=== PATIENT | female | born 1990 | race Caucasian/White ===

== ENCOUNTER 2016-07-31 09:31 | Inpatient (IN) | payer MEDICAID, OTHER ==
[~2016-07-31] VITALS: Ht 147.3 cm; Wt 65.0 kg
[~2016-07-31 09:31] MED LIST: FERR27TA PO; PNV; PREN1TAB49 PO
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
--- NOTE | 2016-07-31 14:16 | RADRPT ---
PROCEDURE: XR Right Humerus. CLINICAL INDICATION: Right arm pain. TECHNIQUE: AP and lateral views of the right humerus were performed. COMPARISON: None. FINDINGS: There is an acute comminuted fracture of the distal shaft of the humerus with marked angulation apex anterior lateral. There are approximately 5 major fracture fragments. There is overlying soft tissue swelling. Articular surfaces are intact. There is no lytic or blastic lesion. There is no radiopaque foreign body. IMPRESSION: 1. Acute comminuted fracture of the distal shaft of the humerus. 2. Intact articular surfaces. 3. Otherwise unremarkable study. RPTAT: QQ .Trino Hernandez MD, MD Date Time Electronically viewed and signed by .Trino Hernandez MD, MD on 07/31/2016 14:16 .R/
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
[2016-07-31] MEDS ORDERED: SOD CHLORIDE 0.9% 1,000 ML IV STA (14:27)
[2016-07-31] MEDS ORDERED: morphine 4 MG/ML VIAL IV STA (14:34)
--- NOTE | 2016-07-31 14:56 | RADRPT ---
PROCEDURE: XR Chest. CLINICAL INDICATION: Preoperative. Abdominal pain. TECHNIQUE: Single frontal view. COMPARISON: None. FINDINGS: The lungs are clear. The heart size is normal. There is no pleural effusion. There is no pneumothorax. IMPRESSION: 1. Normal chest radiograph. RPTAT: QQ .Trino Hernandez MD, MD Date Time Electronically viewed and signed by .Trino Hernandez MD, on 07/31/2016 14:55 .R/
[2016-07-31] MEDS ORDERED: ONDANSETRON 4 MG INJ IV STA (14:57)
[2016-07-31 15:07] LABS: ADD SCAN DIFF NO
[2016-07-31 15:10] LABS: BASOPHILS % 0.1 % (0.0-2.0); HEMOGLOBIN 14.2 g/dl (12.0-16.0); LYMPHOCYTES # 1.1 10^3/ul (0.8-2.9); MEAN CORPUSCULAR HGB CONC 34.6 g/dl (32.0-37.0); MEAN CORPUSCULAR VOLUME 89.5 fl (82.0-101.0); MEAN PLATELET VOLUME 10.9 fl (7.4-10.4); MONOCYTE # 0.4 10^3/ul (0.3-0.9); MONOCYTES % 4.4 % (0.0-11.0); NEUTROPHIL # 8.1 10^3/ul (1.6-7.5); NEUTROPHILS % 84.3 % (39.0-77.0); PLATELET COUNT 298 10^3/UL (140-415); RED BLOOD COUNT 4.58 10^6/ul (4.20-5.40); RED CELL DISTRIBUTION WIDTH 12.4 % (11.5-14.5); WHITE BLOOD COUNT 9.6 10^3/ul (4.8-10.8)
[2016-07-31 15:18] LABS: CHLORIDE 104 mmol/L (97-110); INR 0.94; POTASSIUM 3.8 mmol/L (3.5-5.1); PROTIME 12.6 Sec (12.2-14.2); SODIUM 142 mmol/L (135-144)
[2016-07-31 15:19] LABS: PARTIAL THROMBOPLASTIN TIME 33.7 Sec (25.0-35.0)
[2016-07-31 15:21] LABS: CREATININE 0.62 mg/dl (0.44-1.00)
[2016-07-31 15:22] LABS: ANION GAP 16 (8-16); BLOOD UREA NITROGEN 10 mg/dl (7-20); CALCIUM 9.6 mg/dl (8.4-10.2); CARBON DIOXIDE 26 mmol/L (21-31); GLUCOSE 105 mg/dl (70-220)
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
--- NOTE | 2016-07-31 15:25 | RADRPT ---
PROCEDURE: Chest x-ray CLINICAL INDICATION: Preop TECHNIQUE: Chest single view COMPARISON: 07/31/2016 FINDINGS: The heart is normal in size. The pulmonary vessels are normal in caliber. The lungs are clear. Th e costophrenic angles are sharp. The visualized bony thorax is unremarkable. IMPRESSION: No acute cardiopulmonary disease. RPTAT: HH .Devante George MD, Date Time Electronically viewed and signed by .Devante George MD, on 07/31/2016 15:25 .W/
[2016-07-31] MEDS ORDERED: ACETAMINOPHEN 325 MG TAB PO PRN (15:30)
[2016-07-31] MEDS ORDERED: ONDANSETRON 4 MG INJ IV PRN ×2 (15:30→17:00)
[2016-07-31 15:40] LABS: TROPONIN-I < 0.012 ng/ml (0.00-0.12)
[2016-07-31 16:45] VITALS: BP 114/69; PULSE 78; RESP 18
[2016-07-31 16:56] VITALS: Ht 147.3 cm; Wt 65.0 kg
[2016-07-31] MEDS ORDERED: BISACODYL (EC) 5 MG TAB PO PRN (17:00)
[2016-07-31] MEDS ORDERED: MAGNESIUM HYDROXIDE 30ML CUP PO PRN (17:00)
[2016-07-31] MEDS ORDERED: NACL 0.9% 3 ML SYG IV SCH (17:00)
[2016-07-31] MEDS ORDERED: ZOLPIDEM 5 MG TAB PO PRN (17:00)
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
[2016-07-31] MEDS: SOD CHLORIDE 0.9% 1,000 ML IV SCH (17:37)
[2016-07-31 19:10] LABS: ADD UMIC NO; URINE BILIRUBIN (Dip) NEGATIVE (NEGATIVE); URINE BLOOD (Dip) NEGATIVE (NEGATIVE); URINE COLOR LT. YELLOW (YELLOW); URINE GLUCOSE (Dip) NEGATIVE (NEGATIVE); URINE KETONES (Dip) 3+ (NEGATIVE); URINE LEUKOCYTE ESTERASE (Dip) NEGATIVE (NEGATIVE); URINE NITRITE (Dip) NEGATIVE (NEGATIVE); URINE TOTAL PROTEIN (Dip) NEGATIVE (NEGATIVE); URINE UROBILINOGEN (Dip) 0.2 E.U./dL (0.1-1.0)
[2016-07-31 19:37] VITALS: BP 118/70; RESP 18
[2016-07-31 19:54] LABS: BARBITURATES Negative (NEGATIVE); BENZODIAZEPINES Negative (NEGATIVE); CANNABINOIDS Negative (NEGATIVE); COCAINE Negative (NEGATIVE)
[2016-07-31 19:55] LABS: OPIATES Positive (NEGATIVE)
[2016-07-31] MEDS: FAMOTIDINE 20 MG TAB PO SCH (20:13)
[2016-07-31] MEDS: HYDROCODONE/APAP (5/325) TAB PO PRN (23:49)
[2016-08-01] MEDS: HYDROCODONE/APAP (5/325) TAB PO PRN ×3 (04:56→21:39)
[2016-08-01 05:40] LABS: ADD SCAN DIFF NO
[2016-08-01 05:53] LABS: BASOPHILS % 0.2 % (0.0-2.0); EOSINOPHILS # 0.1 10^3/ul (0.0-0.5); EOSINOPHILS % 1.1 % (0.0-7.0); HEMATOCRIT 34.1 % (37.0-47.0); HEMOGLOBIN 11.5 g/dl (12.0-16.0); LYMPHOCYTES # 2.3 10^3/ul (0.8-2.9); LYMPHOCYTES % 37.1 % (15.0-51.0); MEAN CORPUSCULAR HEMOGLOBIN 30.4 pg (29.0-33.0); MEAN CORPUSCULAR HGB CONC 33.7 g/dl (32.0-37.0); MEAN CORPUSCULAR VOLUME 90.2 fl (82.0-101.0); MEAN PLATELET VOLUME 11.3 fl (7.4-10.4); MONOCYTE # 0.4 10^3/ul (0.3-0.9); MONOCYTES % 6.5 % (0.0-11.0); NEUTROPHIL # 3.4 10^3/ul (1.6-7.5); NEUTROPHILS % 54.8 % (39.0-77.0); PLATELET COUNT 246 10^3/UL (140-415); RED BLOOD COUNT 3.78 10^6/ul (4.20-5.40); RED CELL DISTRIBUTION WIDTH 12.6 % (11.5-14.5); WHITE BLOOD COUNT 6.3 10^3/ul (4.8-10.8)
[2016-08-01 05:55] LABS: INR 1.01; PROTIME 13.3 Sec (12.2-14.2)
[2016-08-01 05:57] LABS: PARTIAL THROMBOPLASTIN TIME 37.2 Sec (25.0-35.0)
[2016-08-01 06:06] LABS: PHOSPHORUS 3.7 mg/dl (2.5-4.9)
[2016-08-01 06:21] LABS: CREATININE 0.61 mg/dl (0.44-1.00)
[2016-08-01 06:30] LABS: THYROID STIMULATING HORMONE 1.65 MIU/L (0.465-4.680)
[2016-08-01 07:26] VITALS: BP 107/66; RESP 14
[2016-08-01] MEDS: FAMOTIDINE 20 MG TAB PO SCH ×2 (09:01→20:14)
[2016-08-01] MEDS: SOD CHLORIDE 0.9% 1,000 ML IV SCH (09:36)
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
[2016-08-01] MEDS: morphine 2 MG INJ IV PRN (19:39)
[2016-08-01 21:16] VITALS: BP 112/74; RESP 20
[2016-08-01 21:17] VITALS: BP_SYST 112; BP_SYST 115; BP_DIAS 73; BP_DIAS 74; RESP 20
[2016-08-02] VITALS (13 sets, daily range): BP systolic 115–154; BP diastolic 61–75; PULSE 72–117; RESP 12–18
[2016-08-02] MEDS: SOD CHLORIDE 0.9% 1,000 ML IV SCH ×2 (00:14→15:47)
[2016-08-02] MEDS: morphine 2 MG INJ IV PRN (04:22)
[2016-08-02 05:12] LABS: ADD SCAN DIFF NO
[2016-08-02 05:15] LABS: BASOPHILS % 0.3 % (0.0-2.0); EOSINOPHILS # 0.1 10^3/ul (0.0-0.5); EOSINOPHILS % 1.1 % (0.0-7.0); HEMOGLOBIN 11.5 g/dl (12.0-16.0); LYMPHOCYTES # 2.5 10^3/ul (0.8-2.9); MEAN CORPUSCULAR HEMOGLOBIN 30.7 pg (29.0-33.0); MEAN CORPUSCULAR HGB CONC 33.8 g/dl (32.0-37.0); MEAN CORPUSCULAR VOLUME 90.9 fl (82.0-101.0); MEAN PLATELET VOLUME 11.4 fl (7.4-10.4); MONOCYTE # 0.6 10^3/ul (0.3-0.9); MONOCYTES % 8.1 % (0.0-11.0); NEUTROPHILS % 55.4 % (39.0-77.0); PLATELET COUNT 248 10^3/UL (140-415); RED BLOOD COUNT 3.74 10^6/ul (4.20-5.40); RED CELL DISTRIBUTION WIDTH 12.7 % (11.5-14.5); WHITE BLOOD COUNT 7.2 10^3/ul (4.8-10.8)
[2016-08-02 05:22] LABS: MAGNESIUM 1.9 mg/dl (1.7-2.5); PHOSPHORUS 4.3 mg/dl (2.5-4.9)
[2016-08-02 05:26] LABS: POTASSIUM 3.7 mmol/L (3.5-5.1)
[2016-08-02 05:28] LABS: CREATININE 0.62 mg/dl (0.44-1.00)
[2016-08-02 05:29] LABS: CALCIUM 9.2 mg/dl (8.4-10.2)
[2016-08-02] MEDS ORDERED: GLYCOPYRROLATE 0.4 MG INJ ONE (07:38)
[2016-08-02] MEDS ORDERED: ONDANSETRON 4 MG INJ ONE (07:38)
[2016-08-02] MEDS ORDERED: NEOSTIGMINE 3 MG/3 ML SYRINGE ONE (07:38)
[2016-08-02] MEDS ORDERED: KETOROLAC 30 MG INJ ONE (07:38)
[2016-08-02] MEDS ORDERED: FLUMAZENIL 0.5 MG INJ ONE (07:38)
[2016-08-02] MEDS ORDERED: MIDAZOLAM 1 MG/ML 2 ML INJ ONE (07:38)
[2016-08-02] MEDS ORDERED: ROCURONIUM 50 MG INJ ONE ×2 (07:38→08:57)
[2016-08-02] MEDS ORDERED: PROPOFOL 20 ML ONE (07:38)
[2016-08-02] MEDS ORDERED: ROPIVACAINE 0.5 % 30 ML VIAL ONE (07:41)
[2016-08-02] MEDS ORDERED: CEFAZOLIN 1 GM INJ ONE (08:11)
[2016-08-02] MEDS ORDERED: FENTAnyl 50 MCG/ML VIAL ONE (08:12)
[2016-08-02] MEDS ORDERED: PHENYLephrine (100 MCG/ML) 5ML SYG ONE (08:24)
[2016-08-02] MEDS: CHOLECALCIFEROL 1,000 UNIT TAB PO SCH (09:00)
[2016-08-02] MEDS: FAMOTIDINE 20 MG TAB PO SCH ×2 (09:00→21:20)
[2016-08-02] MEDS ORDERED: HYDROmorphONE 2 MG/ML SYG ONE (09:12)
[2016-08-02] MEDS ORDERED: POLYMYXIN/BACITRACIN 1L IRRIG ONE (10:53)
[2016-08-02] MEDS ORDERED: ONDANSETRON 4 MG INJ IV PRN (12:30)
[2016-08-02] MEDS ORDERED: HYDROmorphONE (0.2 MG/ML) 10ML SYG IV PRN ×3 (12:30)
[2016-08-02] MEDS ORDERED: MEPERIDINE 25 MG INJ IV PRN (12:30)
[2016-08-02] MEDS ORDERED: DIPHENHYDRAMINE 50 MG INJ IV PRN (12:30)
[2016-08-02] MEDS ORDERED: METOCLOPRAMIDE 10 MG INJ IV PRN (12:30)
--- NOTE | 2016-08-02 13:56 | HPN ---
Date/Time of Note Date/Time of Note DATE: 08/02/16 TIME: 13:55 Interval H&P Admission Note Pt. seen H&P reviewed: No system changes VAL RILEY MD Aug 02, 2016 13:56
[2016-08-02] MEDS ORDERED: NACL 0.9% 3 ML SYG IV SCH (14:00)
[2016-08-02 14:51] LABS: HEMATOCRIT 31.7 % (37.0-47.0); HEMOGLOBIN 10.7 g/dl (12.0-16.0)
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
[2016-08-02] MEDS: CEFAZOLIN 1 GM/50 ML (PMX) 50 ML IVPB SCH ×2 (16:48→23:49)
[2016-08-02] MEDS: HYDROCODONE/APAP (10/325) TAB PO PRN (16:51)
[2016-08-02] MEDS: morphine 4 MG/ML VIAL IV PRN (19:55)
--- NOTE | 2016-08-02 19:58 | RADRPT ---
PROCEDURE: XR Right Humerus. CLINICAL INDICATION: Right arm pain. TECHNIQUE: AP and lateral views of the right humerus were performed. COMPARISON: 07/31/2016. FINDINGS: Images demonstrate open reduction and internal fixation of the comminuted fracture of the distal sha ft of the right humerus with a medial plate, a lateral plate, and multiple screws. Alignment is sat isfactory. Posterior skin lisa are noted. IMPRESSION: 1. Satisfactory postoperative appearance of the right humerus. RPTAT: QQ .Trino Hernandez MD, MD Date Time Electronically viewed and signed by .Trino Hernandez MD, MD on 08/02/2016 19:58 .R/
--- NOTE | 2016-08-02 19:58 | RADRPT ---
PROCEDURE: Intraoperative imaging of the right humerus with fluoroscopy. CLINICAL INDICATION: Right arm pain. Intraoperative. TECHNIQUE: 8 images of the right humerus were obtained in the operating room with an image intensi fier. No radiologist was in attendance. 83 seconds of fluoroscopy time was used. COMPARISON: 07/31/2016 FINDINGS: Images demonstrate open reduction and internal fixation of the comminuted fracture of the distal sha ft of the right humerus with a medial plate, a lateral plate, and multiple screws. Alignment is sat isfactory. IMPRESSION: 1. Intraoperative imaging of the right humerus. RPTAT: QQ .Trino Hernandez MD, Date Time Electronically viewed and signed by .Trino Hernandez MD, on 08/02/2016 19:58 .R/
[2016-08-02] MEDS ORDERED: LORAZEPAM 2 MG INJ IV ONE (20:30)
[2016-08-02] MEDS: ACETAMINOPHEN 325 MG TAB PO PRN (21:20)
[2016-08-03] MEDS: SOD CHLORIDE 0.9% 1,000 ML IV SCH ×3 (01:08→20:15)
[2016-08-03] MEDS: morphine 4 MG/ML VIAL IV PRN ×4 (01:24→20:12)
--- NOTE | 2016-08-03 04:12 | OPR ---
DATE OF OPERATION: 08/02/2016 PREOPERATIVE DIAGNOSIS: Comminuted fracture involving the distal shaft of the right humerus. POSTOPERATIVE DIAGNOSIS: Comminuted fracture involving the distal shaft of the right humerus. OPERATION PERFORMED: Open reduction and internal fixation of the comminuted fracture of the distal shaft of the right humerus. ANESTHESIA: General anesthesia. SURGEON: Dinorah Riley MD PROCEDURE AND FINDINGS: Under general anesthesia, the patient was placed in prone position on the t able. Usual prep and drape was done exposing the right arm and right elbow. A sterile tourniquet w as applied on the upper part of the right arm prior to the procedure. The distal shaft of the right humerus was approached through a posterior longitudinal incision by blunt and sharp dissection. Th e triceps muscle and the elbow were exposed. The initial dissection was carried out, and she was fo und to have a severely comminuted and displaced, unstable fracture. A triceps splitting approach wa s employed in order to expose further. After the exposure, the severely comminuted fracture of the humeral shaft was reduced, and then this reduction was maintained with multiple cerclage wiring util izing PDS sutures. Then internal fixation was carried out using both the longest medial plate and s econd longest lateral plate. At the end of the internal fixation, the alignment of the skeletal str uctures was satisfactory, and the position of the fixation device was proper without impinging any o lecranon fossa or other type of structures. During the process, ulnar nerve and radial nerve had to be completely exposed and taped out of the operative field for protection. At the end of the proce dure, and after irrigation and hemostasis, closure of the incision was carried out using 0 Vicryl fo r muscle and fascia and 2-0 Vicryl for subcutaneous tissues. Final skin closure was carried out wit h skin lisa. ____ pressure dressings were applied. The patient tolerated the entire procedure very well and was sent to the recovery room in good condi tion. Dictated By: DINORAH RILEY MD IK/MIC Conf#: [id number] DID#: [id number]
[2016-08-03 05:07] LABS: ADD SCAN DIFF NO
[2016-08-03 05:18] LABS: BASOPHILS % 0.1 % (0.0-2.0); EOSINOPHILS % 0.1 % (0.0-7.0); HEMATOCRIT 24.1 % (37.0-47.0); HEMOGLOBIN 8.2 g/dl (12.0-16.0); LYMPHOCYTES # 1.8 10^3/ul (0.8-2.9); LYMPHOCYTES % 26.8 % (15.0-51.0); MEAN CORPUSCULAR HEMOGLOBIN 30.9 pg (29.0-33.0); MEAN CORPUSCULAR VOLUME 90.9 fl (82.0-101.0); MEAN PLATELET VOLUME 11.6 fl (7.4-10.4); MONOCYTE # 0.7 10^3/ul (0.3-0.9); NEUTROPHIL # 4.2 10^3/ul (1.6-7.5); NEUTROPHILS % 62.9 % (39.0-77.0); PLATELET COUNT 214 10^3/UL (140-415); RED BLOOD COUNT 2.65 10^6/ul (4.20-5.40); RED CELL DISTRIBUTION WIDTH 12.7 % (11.5-14.5); WHITE BLOOD COUNT 6.7 10^3/ul (4.8-10.8)
[2016-08-03 05:26] LABS: POTASSIUM 3.8 mmol/L (3.5-5.1)
[2016-08-03 05:28] LABS: CREATININE 0.58 mg/dl (0.44-1.00)
[2016-08-03 05:29] LABS: CALCIUM 8.3 mg/dl (8.4-10.2)
[2016-08-03 05:54] LABS: MAGNESIUM 1.7 mg/dl (1.7-2.5); PHOSPHORUS 3.7 mg/dl (2.5-4.9)
[2016-08-03 08:09] VITALS: BP 132/74; RESP 20
[2016-08-03] MEDS: CEFAZOLIN 1 GM/50 ML (PMX) 50 ML IVPB SCH (08:48)
[2016-08-03] MEDS: CHOLECALCIFEROL 1,000 UNIT TAB PO SCH (08:48)
[2016-08-03] MEDS: FAMOTIDINE 20 MG TAB PO SCH ×2 (08:48→21:05)
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
[2016-08-03] MEDS ORDERED: SOD CHLORIDE 0.9% 1,000 ML IV SCH (10:00)
[2016-08-03] MEDS: HYDROCODONE/APAP (10/325) TAB PO PRN (10:18)
[2016-08-03 19:52] VITALS: BP 130/63; RESP 19
[2016-08-03 21:00] VITALS: BP 125/74; PULSE 110; RESP 14
[2016-08-03] MEDS: ACETAMINOPHEN 325 MG TAB PO PRN (21:05)
[2016-08-03 22:00] VITALS: BP 118/70; PULSE 115
[2016-08-04] MEDS: morphine 4 MG/ML VIAL IV PRN ×5 (04:38→18:04)
[2016-08-04 05:30] LABS: ADD SCAN DIFF NO
[2016-08-04 05:32] LABS: BASOPHILS % 0.2 % (0.0-2.0); EOSINOPHILS % 0.5 % (0.0-7.0); HEMOGLOBIN 7.3 g/dl (12.0-16.0); LYMPHOCYTES # 1.7 10^3/ul (0.8-2.9); LYMPHOCYTES % 19.6 % (15.0-51.0); MEAN CORPUSCULAR HEMOGLOBIN 30.3 pg (29.0-33.0); MEAN CORPUSCULAR HGB CONC 33.2 g/dl (32.0-37.0); MEAN CORPUSCULAR VOLUME 91.3 fl (82.0-101.0); MEAN PLATELET VOLUME 11.4 fl (7.4-10.4); MONOCYTE # 0.8 10^3/ul (0.3-0.9); MONOCYTES % 9.2 % (0.0-11.0); NEUTROPHILS % 70.1 % (39.0-77.0); PLATELET COUNT 245 10^3/UL (140-415); RED BLOOD COUNT 2.41 10^6/ul (4.20-5.40); RED CELL DISTRIBUTION WIDTH 12.7 % (11.5-14.5); WHITE BLOOD COUNT 8.6 10^3/ul (4.8-10.8)
[2016-08-04 05:49] LABS: POTASSIUM 3.5 mmol/L (3.5-5.1)
[2016-08-04 05:51] LABS: MAGNESIUM 2.1 mg/dl (1.7-2.5); PHOSPHORUS 3.1 mg/dl (2.5-4.9)
[2016-08-04 05:52] LABS: CREATININE 0.52 mg/dl (0.44-1.00)
[2016-08-04 05:53] LABS: CALCIUM 8.5 mg/dl (8.4-10.2)
[2016-08-04] MEDS: SOD CHLORIDE 0.9% 1,000 ML IV SCH ×4 (05:59→23:14)
[2016-08-04 07:32] VITALS: BP 123/58; RESP 16
[2016-08-04] MEDS: CHOLECALCIFEROL 1,000 UNIT TAB PO SCH (08:43)
[2016-08-04] MEDS: FAMOTIDINE 20 MG TAB PO SCH ×2 (08:44→20:43)
[2016-08-04 10:35] LABS: IRON 12 ug/dl (35-150)
[2016-08-04 10:44] LABS: TOTAL IRON BINDING CAPACITY 256 ug/dl (241-421)
[2016-08-04] MEDS: HYDROCODONE/APAP (10/325) TAB PO PRN ×3 (13:14→20:48)
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
[2016-08-04] MEDS: SOD FERRIC GLUC COMPLX 125 MG in SOD CHLORIDE 0.9% 100 ML IVPB SCH (18:05)
[2016-08-04 19:48] VITALS: BP 129/75; RESP 19
--- NOTE | 2016-08-04 20:33 | PN ---
DATE: 08/04/2016 Stable vital signs. H and H was 7.3 over 22.0, and she was transfused with 2 units of packed cells. Less edema from elevation of the right upper extremity for 2 days. Incision is clean and dry. Th ere are signs of radial nerve palsy, most probably from neuropraxia of the radial nerve from trauma. Bulky dressings were changed. A cock-up wrist brace was ordered to keep the wrist in a functional p osition, and OT evaluation and treatment was requested. Dictated By: DINORAH CHILD/MIC Conf#: [id number] DID#: [id number]
[2016-08-04 20:37] LABS: ADD SCAN DIFF NO
[2016-08-04 20:39] LABS: BASOPHILS % 0.1 % (0.0-2.0); EOSINOPHILS # 0.1 10^3/ul (0.0-0.5); EOSINOPHILS % 0.9 % (0.0-7.0); HEMATOCRIT 30.1 % (37.0-47.0); HEMOGLOBIN 10.4 g/dl (12.0-16.0); LYMPHOCYTES # 2.6 10^3/ul (0.8-2.9); LYMPHOCYTES % 32.8 % (15.0-51.0); MEAN CORPUSCULAR HEMOGLOBIN 31.1 pg (29.0-33.0); MEAN CORPUSCULAR HGB CONC 34.6 g/dl (32.0-37.0); MEAN CORPUSCULAR VOLUME 90.1 fl (82.0-101.0); MEAN PLATELET VOLUME 10.7 fl (7.4-10.4); MONOCYTE # 0.6 10^3/ul (0.3-0.9); MONOCYTES % 7.2 % (0.0-11.0); NEUTROPHIL # 4.7 10^3/ul (1.6-7.5); NEUTROPHILS % 58.8 % (39.0-77.0); PLATELET COUNT 243 10^3/UL (140-415); RED BLOOD COUNT 3.34 10^6/ul (4.20-5.40); RED CELL DISTRIBUTION WIDTH 12.9 % (11.5-14.5)
[2016-08-05] MEDS: HYDROCODONE/APAP (10/325) TAB PO PRN ×3 (00:40→15:17)
[2016-08-05 05:00] VITALS: BP 98/57; PULSE 104
[2016-08-05 05:13] LABS: ADD SCAN DIFF NO
[2016-08-05 05:21] LABS: BASOPHILS % 0.3 % (0.0-2.0); EOSINOPHILS # 0.1 10^3/ul (0.0-0.5); HEMOGLOBIN 10.1 g/dl (12.0-16.0); LYMPHOCYTES # 1.8 10^3/ul (0.8-2.9); LYMPHOCYTES % 25.6 % (15.0-51.0); MEAN CORPUSCULAR HEMOGLOBIN 30.5 pg (29.0-33.0); MEAN CORPUSCULAR HGB CONC 33.7 g/dl (32.0-37.0); MEAN CORPUSCULAR VOLUME 90.6 fl (82.0-101.0); MONOCYTE # 0.5 10^3/ul (0.3-0.9); MONOCYTES % 6.8 % (0.0-11.0); NEUTROPHIL # 4.7 10^3/ul (1.6-7.5); NEUTROPHILS % 64.9 % (39.0-77.0); NUCLEATED RED BLOOD CELLS% 0.3 /100WBC (0.0-0.0); PLATELET COUNT 239 10^3/UL (140-415); RED BLOOD COUNT 3.31 10^6/ul (4.20-5.40); RED CELL DISTRIBUTION WIDTH 13.2 % (11.5-14.5); WHITE BLOOD COUNT 7.2 10^3/ul (4.8-10.8)
[2016-08-05 05:32] LABS: POTASSIUM 3.5 mmol/L (3.5-5.1)
[2016-08-05 05:35] LABS: CREATININE 0.55 mg/dl (0.44-1.00)
[2016-08-05 05:36] LABS: CALCIUM 8.6 mg/dl (8.4-10.2)
[2016-08-05 08:31] VITALS: BP 104/63; RESP 16
[2016-08-05] MEDS: CHOLECALCIFEROL 1,000 UNIT TAB PO SCH (08:37)
[2016-08-05] MEDS: FAMOTIDINE 20 MG TAB PO SCH ×2 (08:37→20:21)
--- NOTE | 2016-08-05 09:41 | CONS ---
Date/Time of Note Date/Time of Note DATE: 08/05/16 TIME: 09:40 Assessment/Plan Assessment/Plan Additional Assessment/Plan Assessment: * Anemia/multifactorial * r/o GI bleeding * chronic anemia * surgical injury related * s/p ORIF R humerus Plan: * monitor for bleeding * stool occult blood x3 if positive consider endoscopic examination * prophylactic proton pump inhibitor * Further recommendations depend on clinical course * Patient seen in collaboration with Dr. Healy Consultation Date/Type/Reason Admit Date/Time Jul 31, 2016 at 15:22 Initial Consult Date 24 HR Interval Summary Free Text/Dictation Hemoglobin stable Iron supplementation in process Denies abdominal pain, nausea, vomiting Exam/Review of Systems Vital Signs Vitals Vital Signs Date Time Temp Pulse Resp B/P Pulse Ox O2 Delivery O2 Flow Rate FiO2 08/05/16 08:31 98.2 114 16 104/63 94 08/04/16 08:00 Nasal Cannula 2.0 Intake and Output 08/04/16 08/04/16 08/05/16 15:00 23:00 07:00 Intake Total 1900 ml 1100 ml Output Total 1000 ml 800 ml Balance 900 ml 300 ml Exam Constitutional: alert, oriented, well developed Psych: nl mood/affect Head: normocephalic Eyes: EOMI, nl conjunctiva, nl lids ENMT: nl external ears & nose, nl lips & teeth, nl nasal mucosa & septum Respiratory: clear to auscultation, normal air movement Cardiovascular: regular rate and rhythm Gastrointestinal: soft, non-tender Musculoskeletal: nl extremities to inspection Neurological: MUSIC ARTIST II-XII intact Results Result Diagram: 08/05/16 0435 08/05/16 0435 Results 24 hrs Laboratory Tests Test 08/04/16 20:30 08/05/16 04:35 Basophils # 0.0 0.0 Basophils % 0.1 0.3 Eosinophils # 0.1 0.1 Eosinophils % 0.9 2.0 Hematocrit 30.1 #L 30.0 L Hemoglobin 10.4 #L 10.1 L Lymphocytes # 2.6 1.8 Lymphocytes % 32.8 25.6 Mean Corpuscular Hemoglobin 31.1 30.5 Mean Corpuscular Hemoglobin Concent 34.6 33.7 Mean Corpuscular Volume 90.1 90.6 Mean Platelet Volume 10.7 H 11.0 H Monocytes # 0.6 0.5 Monocytes % 7.2 6.8 Neutrophils # 4.7 4.7 Neutrophils % 58.8 64.9 Nucleated Red Blood Cells # 0.0 0.0 Nucleated Red Blood Cells % 0.0 0.3 H Platelet Count 243 239 Red Blood Count 3.34 #L 3.31 L Red Cell Distribution Width 12.9 13.2 White Blood Count 8.0 7.2 Anion Gap 12 Blood Urea Nitrogen 8 Calcium Level 8.6 Carbon Dioxide Level 29 Chloride Level 104 Creatinine 0.55 Glucose Level 97 Potassium Level 3.5 Sodium Level 141 Medications Medications Current Medications Ondansetron HCl (Zofran Inj) 4 mg Q6H PRN IV NAUSEA AND/OR VOMITING; Start 07/31 at 17:00 Acetaminophen (Tylenol Tab) 650 mg Q6H PRN PO PAIN LEVEL 1-3 OR FEVER Last administered on 08/03/16 21:05; Admin Dose 650 MG; Start 07/31/16 at 17:00 Magnesium Hydroxide (Milk Of Mag) 30 ml DAILY PRN PO CONSTIPATION Last administered on 08/05/16 05:33; Admin Dose 30 ML; Start 07/31/16 at 17:00 Bisacodyl (Dulcolax) 5 mg DAILY PRN PO CONSTIPATION; Start 07/31/16 at 17:00 Zolpidem Tartrate (Ambien) 5 mg QHS PRN PO SLEEP; Start 07/31/16 at 17:00 Famotidine (Pepcid) 20 mg Q12 PO Last administered on 08/05/16 08:37; Admin Dose 20 MG; Start 07/31/16 at 21:00 Cholecalciferol 1000 unit 1,000 unit DAILY PO Last administered on 08/05/16 08 :37; Admin Dose 1,000 UNIT; Start 08/02/16 at 09:00 Sodium Chloride (NS) 1,000 ml @ 100 mls/hr Q10H IV Last administered on 20:48; Admin Dose 100 MLS/HR; Start 08/02/16 at 13:59 Morphine Sulfate (morphine) 3 mg Q3H PRN IV PAIN Last administered on 18:04; Admin Dose 3 MG; Start 08/02/16 at 14:00 Acetaminophen/ Hydrocodone Bitart 1 tab 1 tab Q4H PRN PO PAIN Last administered on 08/05/16 00:40; Admin Dose 1 TAB; Start 08/02/16 at 14:00 Ferric Sodium Gluconate Complex/ Sodium Chloride (Ferrlecit/NS) 110 ml @ 110 mls/hr Q24H IVPB Last administered on 08/04/16 18:05; Admin Dose 110 MLS/HR; Start 08/04/16 at 16:00; Stop 08/08/16 at 16:59 AGUILAR TREVIÑO Aug 05, 2016 09:41
[2016-08-05] MEDS ORDERED: BISACODYL (EC) 5 MG TAB PO ONE (10:00)
[2016-08-05] MEDS: SOD CHLORIDE 0.9% 1,000 ML IV SCH ×2 (12:10→21:35)
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
--- NOTE | 2016-08-05 14:33 | PN ---
DATE: SUBJECTIVE: Third postop day. OBJECTIVE: VITAL SIGNS: Stable, without any fever. H and H after 2 units of packed cells are 10.1/30.0. Still has a wrist drop; however, the sensation above the dorsum of the right hand seems to be improv ing. There is some extension power of the fingers coming back. Waiting for cock-up wrist brace and occupational therapy. Dictated By: DINORAH CHILD/MIC Conf#: [id number] DID#: [id number]
[2016-08-05] MEDS: SOD FERRIC GLUC COMPLX 125 MG in SOD CHLORIDE 0.9% 100 ML IVPB SCH (16:31)
[2016-08-05 20:05] VITALS: BP 111/70; PULSE 94; RESP 18
[2016-08-05] MEDS ORDERED: NA PHOSPHATE/BIPHOS 133 ML ENEMA PR ONE (22:30)
[2016-08-06] MEDS: HYDROCODONE/APAP (10/325) TAB PO PRN ×3 (00:28→14:50)
[2016-08-06 05:23] LABS: ADD SCAN DIFF NO
[2016-08-06 05:30] LABS: BASOPHILS % 0.4 % (0.0-2.0); EOSINOPHILS # 0.2 10^3/ul (0.0-0.5); EOSINOPHILS % 3.3 % (0.0-7.0); HEMATOCRIT 29.1 % (37.0-47.0); HEMOGLOBIN 9.7 g/dl (12.0-16.0); LYMPHOCYTES # 1.8 10^3/ul (0.8-2.9); LYMPHOCYTES % 30.9 % (15.0-51.0); MEAN CORPUSCULAR HEMOGLOBIN 30.7 pg (29.0-33.0); MEAN CORPUSCULAR HGB CONC 33.3 g/dl (32.0-37.0); MEAN CORPUSCULAR VOLUME 92.1 fl (82.0-101.0); MEAN PLATELET VOLUME 10.4 fl (7.4-10.4); MONOCYTE # 0.3 10^3/ul (0.3-0.9); NEUTROPHIL # 3.4 10^3/ul (1.6-7.5); NEUTROPHILS % 59.2 % (39.0-77.0); PLATELET COUNT 290 10^3/UL (140-415); RED BLOOD COUNT 3.16 10^6/ul (4.20-5.40); RED CELL DISTRIBUTION WIDTH 13.3 % (11.5-14.5); WHITE BLOOD COUNT 5.7 10^3/ul (4.8-10.8)
[2016-08-06 05:49] LABS: POTASSIUM 3.6 mmol/L (3.5-5.1)
[2016-08-06 05:51] LABS: CREATININE 0.54 mg/dl (0.44-1.00)
[2016-08-06 05:52] LABS: CALCIUM 8.8 mg/dl (8.4-10.2)
[2016-08-06] MEDS: SOD CHLORIDE 0.9% 1,000 ML IV SCH (07:59)
[2016-08-06 08:17] VITALS: BP 99/56; RESP 16
[2016-08-06] MEDS: FAMOTIDINE 20 MG TAB PO SCH (08:35)
[2016-08-06] MEDS: CHOLECALCIFEROL 1,000 UNIT TAB PO SCH (08:36)
--- NOTE | 2016-08-06 10:06 | CONS ---
Date/Time of Note Date/Time of Note DATE: 08/06/16 TIME: 10:04 Assessment/Plan Assessment/Plan Additional Assessment/Plan Assessment: * Anemia/multifactorial * r/o GI bleeding, stool OB negative * chronic anemia * surgical injury related * s/p ORIF R humerus Plan: * monitor for bleeding * EGD not recommended * Continue prophylactic proton pump inhibitor * GI sign off * Further recommendations depend on clinical course * Patient seen in collaboration with Dr. Healy Consultation Date/Type/Reason Admit Date/Time Jul 31, 2016 at 15:22 Type of Consultation: Gastroenterology Reason for Consultation Anemia 24 HR Interval Summary Free Text/Dictation Hemoglobin stable Stool OB negative GI sign off Exam/Review of Systems Vital Signs Vitals Vital Signs Date Time Temp Pulse Resp B/P Pulse Ox O2 Delivery O2 Flow Rate FiO2 08/06/16 08:17 98.8 73 16 99/56 98 08/05/16 20:05 Room Air 08/04/16 08:00 2.0 Intake and Output 08/05/16 08/05/16 08/06/16 15:00 23:00 07:00 Intake Total 500 ml 1410 ml 1200 ml Output Total 900 ml 1100 ml Balance 500 ml 510 ml 100 ml Exam Constitutional: alert, oriented, well developed Psych: nl mood/affect Head: normocephalic Eyes: EOMI, nl conjunctiva, nl lids ENMT: nl external ears & nose, nl lips & teeth, nl nasal mucosa & septum Respiratory: clear to auscultation, normal air movement Cardiovascular: regular rate and rhythm Gastrointestinal: soft, non-tender Musculoskeletal: nl extremities to inspection Neurological: SENIOR PATIENT ACCOUNT REPRESENTATIVE II-XII intact Results Result Diagram: 08/06/16 0439 08/06/16 0439 Results 24 hrs Laboratory Tests Test 08/05/16 22:41 08/06/16 04:39 Stool Occult Blood NEGATIVE Anion Gap 13 Basophils # 0.0 Basophils % 0.4 Blood Urea Nitrogen 6 L Calcium Level 8.8 Carbon Dioxide Level 29 Chloride Level 102 Creatinine 0.54 Eosinophils # 0.2 Eosinophils % 3.3 Glucose Level 87 Hematocrit 29.1 L Hemoglobin 9.7 L Lymphocytes # 1.8 Lymphocytes % 30.9 Mean Corpuscular Hemoglobin 30.7 Mean Corpuscular Hemoglobin Concent 33.3 Mean Corpuscular Volume 92.1 Mean Platelet Volume 10.4 Monocytes # 0.3 Monocytes % 6.0 Neutrophils # 3.4 Neutrophils % 59.2 Nucleated Red Blood Cells # 0.0 Nucleated Red Blood Cells % 0.0 Platelet Count 290 # Potassium Level 3.6 Red Blood Count 3.16 L Red Cell Distribution Width 13.3 Sodium Level 140 White Blood Count 5.7 # Medications Medications Current Medications Ondansetron HCl (Zofran Inj) 4 mg Q6H PRN IV NAUSEA AND/OR VOMITING; Start 07/31 at 17:00 Acetaminophen (Tylenol Tab) 650 mg Q6H PRN PO PAIN LEVEL 1-3 OR FEVER Last administered on 08/03/16 21:05; Admin Dose 650 MG; Start 07/31/16 at 17:00 Magnesium Hydroxide (Milk Of Mag) 30 ml DAILY PRN PO CONSTIPATION Last administered on 08/05/16 05:33; Admin Dose 30 ML; Start 07/31/16 at 17:00 Bisacodyl (Dulcolax) 5 mg DAILY PRN PO CONSTIPATION; Start 07/31/16 at 17:00 Zolpidem Tartrate (Ambien) 5 mg QHS PRN PO SLEEP; Start 07/31/16 at 17:00 Famotidine (Pepcid) 20 mg Q12 PO Last administered on 08/06/16 08:35; Admin Dose 20 MG; Start 07/31/16 at 21:00 Cholecalciferol 1000 unit 1,000 unit DAILY PO Last administered on 08/06/16 08 :36; Admin Dose 1,000 UNIT; Start 08/02/16 at 09:00 Sodium Chloride (NS) 1,000 ml @ 100 mls/hr Q10H IV Last administered on 12:10; Admin Dose 100 MLS/HR; Start 08/02/16 at 13:59 Morphine Sulfate (morphine) 3 mg Q3H PRN IV PAIN Last administered on 18:04; Admin Dose 3 MG; Start 08/02/16 at 14:00 Acetaminophen/ Hydrocodone Bitart 1 tab 1 tab Q4H PRN PO PAIN Last administered on 08/06/16 08:36; Admin Dose 1 TAB; Start 08/02/16 at 14:00 Ferric Sodium Gluconate Complex/ Sodium Chloride (Ferrlecit/NS) 110 ml @ 110 mls/hr Q24H IVPB Last administered on 08/05/16t 16:31; Admin Dose 110 MLS/HR; Start 08/04/16 at 16:00; Stop 08/08/16 at 16:59 AGUILAR TREVIÑO Aug 06, 2016 10:06
[2016-08-06] MEDS ORDERED: DOCU-144 PO (11:37)
[2016-08-06] MEDS ORDERED: FER325 PO (11:37)
[2016-08-06] MEDS ORDERED: CHOL100062 PO (11:37)
[2016-08-06] MEDS ORDERED: Hydrocodone/Apap (10/325) PO (11:37)
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
== END 2016-08-06 15:50 | disposition home or self-care (01) | DRG 493 ==
LOC: FTE 09:31 → MS1 15:22
PROVIDERS: ADMIT Family Medicine; ATTEND Family Medicine
PROC: 0PSF04Z Reposition Right Humeral Shaft with Internal Fixation Device, Open Approach (ICD-10-PCS; principal; 2016-07-31)
PROC: 30233N1 Transfusion of Nonautologous Red Blood Cells into Peripheral Vein, Percutaneous Approach (ICD-10-PCS; 2016-07-31)
DX: S42.401A Unspecified fracture of lower end of right humerus, initial encounter for closed fracture (principal); D62 Acute posthemorrhagic anemia; V49.88XA Car occupant (driver) (passenger) injured in other specified transport accidents, initial encounter; Y93.E6 Activity, residential relocation; Y92.9 Unspecified place or not applicable; E66.3 Overweight; Z68.29 Body mass index [BMI] 29.0-29.9, adult; E55.9 Vitamin D deficiency, unspecified; R00.0 Tachycardia, unspecified; D63.8 Anemia in other chronic diseases classified elsewhere
CPT/HCPCS: 36415; 36430; 71010; 73070; 80048; 80061; 80307; 81003; 82270; 82652; 83036; 83540; 83735; 84100; 84439; 84443; 84484; 84703; 85014; 85018; 85025; 85610; 85730; 86850; 86900; 86901; 86920; 93005; 96374; 96375; 97165; J0690; J1170; J1885; J2060; J2250; J2270; J2370; J2405; J2710; J2795; J2916; J3010; J7030; P9016